=== PATIENT | female | born 1985 | race Caucasian/White ===

== ENCOUNTER 2021-04-23 01:15 | Emergency (ER) | payer OTHER ==
[~2021-04-23] VITALS: Ht 170.2 cm; Wt 86.4 kg
[2021-04-23 01:24] VITALS: TEMP 99.8
[2021-04-23 01:51] LABS: BASO % 0.4 % (0.0-2.0); EOS # 0.4 (0.0-0.7); EOS % 3.6 % (0-4.0); GRAN # 9.2 (1.4-6.5); GRAN % 82.1 % (42.2-75.2); LYMPH # 0.8 (1.2-3.4); LYMPH % 7.2 % (20.0-51.0); MEAN CELL VOLUME 80 fl (80.0-100.0); MEAN CORPUSCULAR HEMOGLOBIN 25 pg (27.0-31.0); MEAN CORPUSCULAR HGB CONC 31 g/dl (33.0-37.0); MEAN PLATELET VOLUME 8.3 fl (7.4-10.4); MONO # 0.7 (0.1-0.6); MONO % 6.4 % (1.7-9.3); PLATELET COUNT 346 K/mm3 (130-400); RED BLOOD COUNT 4.43 M/mm3 (4.10-5.30); REDCELL DISTRIBUTION WIDTH-CV 14.4 % (11.5-14.5)
[2021-04-23 02:02] LABS: HEMATOCRIT 35.5 % (37.0-47.0)
[2021-04-23 02:04] LABS: C-REACTIVE PROTEIN 6.6 mg/dL (0.0-0.9)
[2021-04-23] MEDS ORDERED: AMOXICILLIN 8751 TAB PO (02:08)
[2021-04-23 02:09] LABS: CALCIUM 8.9 mg/dL (8.4-10.2); CREATININE, serum 1.12 (0.52-1.25); POTASSIUM 3.7 mmol/L (3.4-5.0)
[2021-04-23 02:42] VITALS: BP 132/77; PULSE 68
== END 2021-04-23 02:42 | disposition home or self-care (01) ==
LOC: COL.ER 01:15 → EDBD 01:17 → COL.ER 02:42
PROVIDERS: Emergency Medicine
DX: O91.22 Nonpurulent mastitis associated with the puerperium (principal); D72.829 Elevated white blood cell count, unspecified
CPT/HCPCS: J1885; J2405; J7030